=== PATIENT | male | born 1995 | race Two or more races ===

== ENCOUNTER 2023-11-23 20:08 | Emergency (ER) | payer SELFPAY ==
[~2023-11-23] VITALS: Ht 165.1 cm; Wt 63.5 kg
[2023-11-23] MEDS ORDERED: DOXY100C2 PO (22:01)
[2023-11-23] MEDS ORDERED: CEPH-570 PO (22:01)
[2023-11-23] MEDS ORDERED: CIPR-262 PO (22:01)
[2023-11-23 22:30] VITALS: BP 130/80; TEMP 98.2; O2SAT 98
== END 2023-11-23 22:31 | disposition home or self-care (01) ==
LOC: ER 20:21
DX: L03.116 Cellulitis of left lower limb (principal); T63.511A Toxic effect of contact with stingray, accidental (unintentional), initial encounter; Z79.899 Other long term (current) drug therapy; Y92.89 Other specified places as the place of occurrence of the external cause
CPT/HCPCS: 73630-TC